=== PATIENT | male | born 1995 | race Caucasian/White ===

== ENCOUNTER → 2019-03-10 11:42 | Outpatient (CLI) | payer OTHER, SELFPAY ==
[2019-03-10 14:12] LABS: T4 Free Direct 1.05 ng/dL (0.76-1.46)
[2019-03-13 15:48] LABS: Thyroid Stim Immunoglob <0.10 IU/L (0.00-0.55)
== END ==
PROVIDERS: Family Provider Nurse Practitioner Family; PCP Nurse Practitioner Family; Referring Provider Nurse Practitioner Family; Visit Provider Nurse Practitioner Family
DX: E04.9 Nontoxic goiter, unspecified (principal)
CPT/HCPCS: 36415; 84439; 84443; 84445

== ENCOUNTER 2024-05-28 18:55 | Emergency (ER) | payer OTHER, SELFPAY ==
[2024-05-28 18:57] VITALS: BP 132/86; PULSE 78; RESP 16; TEMP 36.6; O2SAT 98; BMI 21.6
--- NOTE | 2024-05-28 19:55 | EX.ED.DYSGE1 ---
HPI History of Present Illness Chief Complaint: Seizure Narrative Narrative: 28-year-old male with history of epilepsy presenting with breakthrough seizure at work. 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 He does not remember anything that happened. He woke up in the ER. There is a coworker with him. He stated the seizure was witnessed as he was about a minute and a half. Patient was postictal. He fell and hit his head against the wall. He sustained a laceration to the right posterior scalp. Bleeding is controlled. Last tetanus is unknown. On evaluation the patient is awake and alert. He states he feels like he has bodyaches all over. He states that he is supposed to be on Keppra 500 mg p.o. twice daily but states he never takes it. He states he does not take it because they never found anything on his EEG. He states sometimes when he does not feel well he takes it. He has not taken it in a long time. Denies neck pain. Denies paresthesias. [facility] Medical History Seizures Home Medications ?Medication ?Instructions ?Recorded ?Last Taken ?Type levetiracetam 500 mg tablet 500 mg PO BID 05/28/24 Unknown History Allergy/AdvReac Type Severity Reaction Status Date / Time No Known Allergies Allergy Verified 05/28/24 18:56 Social History Smoking Status: Former smoker ROS ROS ED Constitutional Constitutional ED: Denies chills, fever(s) or sweats Eyes Eyes: Denies blurry vision or change in vision ENT ENT ED: Denies ear pain or sore throat Cardiovascular Cardiovascular: Denies chest pain, palpitations or racing heartbeat Respiratory/Chest Respiratory/Chest: Denies cough, dyspnea or sputum Gastrointestinal Gastrointestinal: Denies abdominal pain, constipation, diarrhea, nausea or vomiting Genitourinary Genitourinary ED: Denies dysuria, hematuria or urinary frequency Musculoskeletal Musculoskeletal: Reports myalgias; Denies arthralgias or neck pain Integumentary Reports other Details: Abdominal pain scalp laceration ; Denies abscess, Abrasions or rash Neurologic Neurologic: Reports headache(s); Denies paresthesias or weakness Psychiatric Psychiatric: Denies anxiety, depression, suicidal ideation or suicidal thoughts Endocrine Endocrinology: Denies polydipsia or polyuria EXAM Physical Exam Const Vital Signs: 05/28/24 18:57 05/28/24 19:58 05/28/24 19:59 Temperature 97.8 F 97.8 F Temperature Source Temporal Pulse Rate 78 67 65 Respiratory Rate 16 27 H 27 H Blood Pressure 132/86 H 119/64 119/64 Blood Pressure Mean 101 82 82 Pulse Ox 98 98 98 Oxygen Delivery Method Room Air Room Air Positive well nourished General Appearance ED: NAD HEENT Reports moist mucous membranes Eyes PERRL and EOMs intact bilaterally Neck no lymphadenopathy Chest Wall inspection of chest normal and palpation of chest normal Resp normal respiratory effort and clear to auscultation bilaterally Cardio regular rate and regular rhythm Neuro oriented x3, CN's II-XII intact bilaterally and no sensory deficits noted Sensorium / Orientation: alert Motor Exam: strength 5/5 throughout Psych mental status grossly normal Skin Skin Narrative: 6 cm superficial scalp laceration to the right posterior scalp. No discoloration deformity MDM MDM MDM Narrative Medical decision making narrative: Patient presenting with seizure. He states he supposed to be on Keppra but does not take it. He had a witnessed seizure at work which lasted a minute and a half he states he rested and postictal related to remember coming here. He states he does not want to be here. He did not request to be transported. He does not know when his last tetanus was but does not want it updated. He denies any lab work or imaging. He does not want any medication. He does not want his laceration sutured. Patient is alert and awake and really has capacity to make this decision. Patient will be signed out AGAINST MEDICAL ADVICE. Acknowledges severe disability, injury, urinary tract infection or risk. I recommended that he take his Keppra at home. He does state that he has plenty. Recommend agrees with clean and dry. Return precautions were discussed. Impression: 1. Breakthrough seizure 2. Scalp laceration Lab Data Attestation: I reviewed the patient's lab results. 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
[2024-05-28 19:58] VITALS: BP 119/64; PULSE 67; RESP 27; TEMP 36.6; O2SAT 98
[2024-05-28 19:59] VITALS: BP 119/64; PULSE 65; RESP 27; O2SAT 98
== END 2024-05-28 20:13 | disposition left against medical advice (07) ==
PROVIDERS: Emergency Provider Student in an Organized Health Care Education/Training Program; Visit Provider Student in an Organized Health Care Education/Training Program
DX: R56.9 Unspecified convulsions (principal); S01.01XA Laceration without foreign body of scalp, initial encounter; Z87.891 Personal history of nicotine dependence; W13.8XXA Fall from, out of or through other building or structure, initial encounter; Y93.89 Activity, other specified; Y99.0 Civilian activity done for income or pay; Y92.89 Other specified places as the place of occurrence of the external cause
CPT/HCPCS: 99283; A4216

== ENCOUNTER 2024-09-13 10:52 | Emergency (ER) | payer SELFPAY ==
[2024-09-13 10:53] VITALS: BP 121/79; PULSE 78; RESP 16; TEMP 36.5; O2SAT 97; BMI 28.7
[2024-09-13] MEDS: LORazepam 2 MG/ML Syringe 1 MG IV (11:10)
[2024-09-13 11:20] LABS: Absolute Lymphocyte Count 3.23 X10^3/uL (0.83-4.51); Absolute Neutrophil Count 13.9 X10^3/uL (2.0-7.7); Basophil# 0.15 X10^3/uL; Basophil% 0.7 % (0-1); Eosinophil# 0.01 X10^3/uL; Hematocrit 48.9 % (40-54); Hemoglobin 15.7 g/dL (13.0-16.5); Lymphocyte # 3.23 X10^3/ul (0.83-4.51); Lymphocyte % 15.2 % (19-41); Mean Corp Hgb Conc 32.1 g/dL (32-36); Mean Corpuscular Hgb 31.1 pg (27.0-32.0); Mean Corpuscular Volume 96.8 fL (80-94); Mean Platelet Vol. 9.2 fl (6.2-12.0); Monocyte# 3.77 X10^3/uL; Monocyte% 17.8 % (0-10); NRBC Flagged by Analyzer 0 % (0-5); Neutrophil # 13.85 X10^3/uL (2.7-7.7); Neutrophil % 65.5 % (47-70); POSITIVE DIFFERENTIAL YES; Platelet Count 303 K/mm3 (150-450); RBC Distribution Width CV 12.6 % (11.6-14.6); Red Blood Count 5.05 M/mm3 (4.6-6.2); White Blood Count 21.2 K/mm3 (4.4-11.0)
[2024-09-13 11:21] LABS: Differential Indicated SCAN CRITERIA MET
[2024-09-13] MEDS: levETIRAcetam IV 1,000 MG/100 ML BAG 400 MG IV (11:28)
[2024-09-13 11:35] LABS: AST(SGOT) 19 U/L (15-37); Alanine Aminotransfer ALT/SGPT 29 U/L (16-61); Albumin, Serum 4.7 g/dL (3.2-5.0); Alkaline Phosphatase 118 U/L (45-117); Anion Gap 20 (5-15); BUN 19 mg/dL (7-18); BUN/Creat Ratio 11.4 RATIO (10-20); Bilirubin, Direct 0.11 mg/dL (0.00-0.30); Calcium,Total 8.9 mg/dL (8.5-10.1); Chloride 106 mmol/L (98-107); Creatinine, Serum 1.66 mg/dL (0.70-1.30); EST Glomerular Filtration Rate 52 mL/min (>60); Est Glom Filt Rate - Afr Amer 62 mL/min (>60); Estimated Creatinine Clearance 53.75 ml/min; Globulin 3.6 g/dL (2.2-4.2); Glucose 179 mg/dL (74-106); Potassium 3.9 mmol/L (3.5-5.1); Protein, Total 8.3 g/dL (6.4-8.2); Sodium Level 138 mmol/L (136-145)
[2024-09-13] MEDS: Ondansetron 4 MG/2 ML Vial IV (12:47)
[2024-09-13] MEDS: Ketorolac 30 MG/ML Syringe IV (12:47)
[2024-09-13 12:53] VITALS: PULSE 85; RESP 18; O2SAT 94
[2024-09-13 13:37] VITALS: BP 126/74; PULSE 86; RESP 18; TEMP 36.6; O2SAT 93
[2024-09-13 13:54] LABS: Differential Comment SCANNED
[2024-09-15 14:28] LABS: Pathologist Review Reviewed
== END 2024-09-13 13:38 | disposition home or self-care (01) ==
PROVIDERS: Emergency Provider Emergency Medicine; Visit Provider Emergency Medicine
DX: G40.909 Epilepsy, unspecified, not intractable, without status epilepticus (principal); Z87.891 Personal history of nicotine dependence
CPT/HCPCS: 70450; 80048; 80076; 85025; 96361; 96374; 96375; 99284; A4216; J2405